=== PATIENT | male | born 1995 | race Two or more races ===

== ENCOUNTER 2024-11-09 15:38 | Emergency (ER) | payer OTHER ==
[~2024-11-09] VITALS: Ht 170.2 cm; Wt 68.0 kg
[2024-11-09 17:08] LABS: PLATELET COUNT (AUTO) 299 K/uL (150-450); RED BLOOD CELL COUNT(AUTO) 5.26 MIL/uL (4.5-6.0); RED CELL DISTRIBUTION WIDTH 13.0 % (11.5-15.0); WHITE BLOOD COUNT (AUTO) 8.6 K/uL (4.3-11.0)
[2024-11-09 17:26] LABS: ASPARTATE AMINOTRANSFERASE 14 U/L (15-37); CALCIUM, SERUM 9.0 mg/dL (8.5-10.1); CREATININE 0.9 mg/dL (0.6-1.3); SODIUM SERUM 137 mmol/L (136-145); TOTAL PROTEIN, SERUM 7.9 g/dL (6.4-8.2); UREA NITROGEN, BLOOD 20 mg/dL (7-18)
[2024-11-09 18:07] VITALS: BP 127/62; TEMP 98.4; O2SAT 99
== END 2024-11-09 18:07 | disposition home or self-care (01) ==
LOC: ER 16:15
DX: R00.2 Palpitations (principal); R07.9 Chest pain, unspecified
CPT/HCPCS: 36415; 71045-TC; 80048-TC; 80076-TC; 83735-TC; 84443-TC; 84484-TC; 85025-TC